=== PATIENT | male | born 1995 | race American Indian/Alaskan Native ===

== ENCOUNTER 2021-04-05 10:45 | Emergency (ER) | payer SELFPAY ==
[2021-04-05 10:54] VITALS: BP 163/85
--- NOTE | 2021-04-05 11:36 | XRay Report ---
RIGHT SHOULDER 3 VIEW(S) INDICATION / CLINICAL INFORMATION: pain COMPARISON: None available. FINDINGS: BONES / JOINT(S): No acute fracture or subluxation. No significant arthritis. SOFT TISSUES: No significant abnormality. ADDITIONAL FINDINGS: None. Signer Name: Juventino Cramer DO Signed: 04/05/2021 11:32 AM Workstation Name: [id number]
--- NOTE | 2021-04-05 11:41 | Emergency Department Report ---
Upper Extremity - HPI Chief Complaint: Shoulder Injury Stated Complaint: RT SHOULDER PAIN Time Seen by Provider: 04/05/21 11:11 Upper Extremity: Right Shoulder Occurred When: >5 Days Mechanism: Other (work in trucks ) Symptoms: Yes Pain with Movement, Yes Limited Range of Movement Other History: right shoulder pain for more than a week ED Review of Systems ROS: Stated complaint: RT SHOULDER PAIN Other details as noted in HPI Constitutional: denies: chills, fever Eyes: denies: eye pain, eye discharge, vision change ENT: denies: ear pain, throat pain Respiratory: denies: cough, shortness of breath, wheezing Cardiovascular: denies: chest pain, palpitations Endocrine: no symptoms reported Gastrointestinal: denies: abdominal pain, nausea, diarrhea Genitourinary: denies: urgency, dysuria Musculoskeletal: denies: back pain, joint swelling, arthralgia Skin: denies: rash, lesions Neurological: denies: headache, weakness, paresthesias Psychiatric: denies: anxiety, depression Hematological/Lymphatic: denies: easy bleeding, easy bruising ED Past Medical Hx - Past Medical History Previous Medical History?: Yes Hx Hypertension: Yes (no meds) - Surgical History Past Surgical History?: No - Medications Home Medications: Home Medications Medication Instructions Recorded Confirmed Last Taken Type Cyclobenzaprine HCl [Flexeril 5 MG 5 mg PO TID #12 tab 04/05/21 Unknown Rx TAB] methylPREDNISolone [Medrol 4MG 4 mg PO UNK #1 04/05/21 Unknown Rx DOSEPAK (21 tabs)] Upper Extremity Exam - Exam General: Vital signs noted. No distress. Alert and acting appropriately. Head and Torso: No HEENT Abnormality, No Neck Tenderness, No Chest/Lungs Abnormality, No Abdominal Tenderness, No Back Tenderness Shoulder Exam: Yes Shoulder Tenderness, No Clavicle Tenderness, No Shoulder Deformity, No AC Joint Tenderness Arm Exam: No Arm/Humerus Tenderness, No Arm Deformity Elbow: No Elbow Tenderness, No Normal Range of Motion in Elbow, No Elbow Deformity Forearm: No Forearm Tenderness, No Forearm Deformity, No Pain with Pronation, No Pain with Supination Wrist: Yes Normal ROM in Wrist, No Wrist Tenderness, No Wrist Deformity, No Snuffbox Tenderness, No Pain with Axial Thumb Compression Hand: Yes Normal ROM in Digit(s), No Hand Tenderness, No Hand Deformity, No Digit Tenderness, No Digit(s) Deformity, No Tendon Dysfunction CMS Exam: No Broken Skin, No Normal Distal Pulses, No Normal Capillary Refill, No Normal Distal Sensation ED Course Vital Signs 04/05/21 10:52 Temperature 98.4 F Pulse Rate 79 Respiratory 18 Rate Blood Pressure 163/85 O2 Sat by Pulse 100 Oximetry - Reevaluation(s) Reevaluation #1: 04/05/21 11:40 x ray neg , exam consistant with lig injury , will give steriods and immobilize and orth referral Critical care attestation.: If time is entered above; I have spent that time in minutes in the direct care of this critically ill patient, excluding procedure time. ED Disposition Clinical Impression: Sprain of shoulder girdle Disposition: HOME / SELF CARE / HOMELESS Is pt being admited?: No Does the pt Need Aspirin: No Condition: Stable Instructions: How to Use a Shoulder Immobilizer, How to Use Cold Therapy, [id number] Prescriptions: Cyclobenzaprine HCl [Flexeril 5 MG TAB] 5 mg PO TID #12 tab methylPREDNISolone [Medrol 4MG DOSEPAK (21 tabs)] 4 mg PO UNK #1 Referrals: JHON LANDERS MD [Staff Physician] - 3-5 Days
== END 2021-04-05 12:43 | disposition home or self-care (01) ==
LOC: ED 10:45
DX: S43.91XA Sprain of unspecified parts of right shoulder girdle, initial encounter (principal); X58.XXXA Exposure to other specified factors, initial encounter; Y93.89 Activity, other specified; Y92.89 Other specified places as the place of occurrence of the external cause; Y99.8 Other external cause status; I10 Essential (primary) hypertension
CPT/HCPCS: 99283